=== PATIENT | female | born 1960 | race Caucasian/White ===

== ENCOUNTER 2016-07-07 15:21 | Inpatient (IN) | payer MEDICARE, MEDICAID ==
[~2016-07-07] VITALS: Ht 160 cm; Wt 147.9 kg
[~2016-07-07 15:21] MED LIST: INSUINJ37 SUBCUT
[2016-07-07 16:08] LABS: Basophils # (auto) 0.1 uL; Basophils % (auto) 0.9 % (0.0-2.0); DEFINITIVE VIEW TRANSMISSION; Eosinophils # (auto) 0.9 uL; Eosinophils % (auto) 7.7 % (0.0-7.0); Hemoglobin 11.9 g/dL (12.2-16.2); Lymphocytes % (auto) 26.5 % (10.0-50.0); Mean Corpuscular Hgb Conc. 32.1 g/dL (32.0-36.0); Mean Corpuscular Volume 90.3 fL (80.0-100.0); Mean Platelet Volume 8.7 fL (7.4-10.4); Monocytes # (auto) 0.4 uL; Monocytes % (auto) 3.1 % (0.0-12.0); Neutrophils % (auto) 61.8 % (37.0-80.0); Platelet Count (auto) 500 10^3/uL (140-450); Red Cell Distribution Width 14.1 % (11.6-16.0); White Blood Cell 11.3 10^3/uL (4.4-10.8)
[2016-07-07 16:26] LABS: INR 0.99 (0.9-1.15); Partial Thromboplastin Time 25.3 sec (22.64-33.71); Prothrombin Time 10.2 sec (9.37-12.3)
[2016-07-07 16:34] LABS: Albumin 3.2 g/dL (3.4-5.0); Anion Gap 12 (5-15); Blood Urea Nitrogen 30 mg/dL (7-18); Calcium 8.1 mg/dL (8.5-10.1); Carbon Dioxide 22 mmol/L (21-32); Chloride 105 mmol/L (98-107); Magnesium 1.8 mg/dL (1.6-2.6); Potassium 4.3 mmol/L (3.5-5.1); Sodium 139 mmol/L (136-145)
[2016-07-07 16:38] LABS: Alkaline Phosphatase 72 U/L (45-117); Aspartate Aminotransferase 20 U/L (15-37); BUN/Creatinine Ratio 30.9; Bilirubin, Total < 0.1 mg/dL (0.2-1.0); GFR African American 77 mL/min; GFR Non-African American 63 mL/min; Total Protein 7.3 g/dL (6.4-8.2)
[2016-07-07 17:04] LABS: Glucose 530 mg/dL (74-106)
[2016-07-07] MEDS ORDERED: LEVEMIR SC (17:28)
[2016-07-07] MEDS ORDERED: GABA-494 PO (17:28)
[2016-07-07] MEDS ORDERED: INSUINJ18 SC (17:28)
[2016-07-07] MEDS ORDERED: IBUP600T27 PO (17:28)
[2016-07-07] MEDS ORDERED: ONDANSETRON HCL 4 MG/2 ML VIAL IV ONE (17:45)
[2016-07-07] MEDS ORDERED: MORPHINE SULFATE 4 MG/ML SYRG IV ONE (17:45)
[2016-07-07] MEDS ORDERED: CLINDAMYCIN 600MG IV 50 ML IV ONE (17:45)
[2016-07-07] MEDS ORDERED: SODIUM CHLORIDE 0.9% 500 ML IV ONE (17:45)
[2016-07-07] MEDS ORDERED: NITROGLYCERIN 0.4 MG SL TAB SL PRN (18:00)
[2016-07-07] MEDS ORDERED: MORPHINE SULF INJ 2 MG/ML SYRINGE 1ML IV PRN ×2 (18:00)
[2016-07-07] MEDS ORDERED: DEXTROSE (50%) 50ML SYRG IV PRN (18:00)
[2016-07-07] MEDS ORDERED: TEMAZEPAM 15 MG CAP PO PRN (18:00)
[2016-07-07] MEDS ORDERED: LORazepam 0.5 MG TAB PO PRN (18:00)
[2016-07-07] MEDS ORDERED: ACETAMINOPHEN 500 MG TAB PO PRN (18:00)
[2016-07-07] MEDS ORDERED: PROMETHAZINE HCL 25 MG/ML 1ML IV PRN (18:00)
[2016-07-07] MEDS ORDERED: InsuLIN REG 1unit/0.01ml Soln (100units/ml) IV ONE (18:00)
[2016-07-07] MEDS ORDERED: VANCOMYCIN 1GM/250ML D5W 250 ML IV ONE (18:00)
[2016-07-07] MEDS ORDERED: ENOXAPARIN SOD 40 MG/0.4 ML SYRINGE SC SCH (18:05)
[2016-07-07] MEDS ORDERED: cefTRIAXone 1GM/50ML D5W 50 ML IV ONE (18:45)
[2016-07-07] MEDS: SODIUM CHLORIDE 0.9% 1,000 ML IV SCH (19:16)
[2016-07-07] MEDS: InsuLIN REG 1unit/0.01ml Soln (100units/ml) SC SCH (20:25)
[2016-07-07] MEDS: ACCU-CHEK COMFORT CURVE STRIP VI SCH (20:29)
[2016-07-07] MEDS: INSULIN DETEMIR(LEVEMIR) 1unit/0.01ml Soln (100units/ml) SC SCH (22:00)
[2016-07-07] MEDS: GABAPENTIN 100 MG CAP PO SCH (22:39)
[2016-07-08] MEDS: ACCU-CHEK COMFORT CURVE STRIP VI SCH ×5 (00:05→22:28)
[2016-07-08] MEDS: InsuLIN REG 1unit/0.01ml Soln (100units/ml) SC SCH ×5 (00:05→22:25)
[2016-07-08] MEDS: CLINDAMYCIN 600MG IV 50 ML IV SCH ×3 (02:00→18:20)
[2016-07-08] MEDS: SODIUM CHLORIDE 0.9% 1,000 ML IV SCH (04:28)
[2016-07-08 04:38] VITALS: BP 102/59
[2016-07-08 05:13] LABS: Basophils # (auto) 0.1 uL; Basophils % (auto) 0.8 % (0.0-2.0); DEFINITIVE VIEW TRANSMISSION; Eosinophils % (auto) 10.2 % (0.0-7.0); Hematocrit 33.2 % (36.0-46.0); Lymphocytes # (auto) 4.7 uL; Lymphocytes % (auto) 50.1 % (10.0-50.0); Mean Corpuscular Hgb Conc. 33.2 g/dL (32.0-36.0); Mean Corpuscular Volume 90.2 fL (80.0-100.0); Mean Platelet Volume 8.3 fL (7.4-10.4); Monocytes % (auto) 10.7 % (0.0-12.0); Neutrophils # (auto) 2.7 uL; Neutrophils % (auto) 28.2 % (37.0-80.0); Platelet Count (auto) 480 10^3/uL (140-450); Red Cell Distribution Width 13.9 % (11.6-16.0); White Blood Cell 9.5 10^3/uL (4.4-10.8)
[2016-07-08] MEDS: GABAPENTIN 100 MG CAP PO SCH ×3 (06:05→21:40)
[2016-07-08 09:00] VITALS: BP 119/67
[2016-07-08] MEDS ORDERED: IOHEXOL 350 MG/ML 100ML IJ ONE (09:26)
[2016-07-08] MEDS: INSULIN DETEMIR(LEVEMIR) 1unit/0.01ml Soln (100units/ml) SC SCH ×2 (10:00→22:28)
[2016-07-08] MEDS: cefTRIAXone 1GM/50ML D5W 50 ML IV SCH (10:17)
[2016-07-08] MEDS ORDERED: DEXTROSE (50%) 50ML SYRG IV PRN (12:15)
[2016-07-08 12:48] VITALS: BP 148/76
[2016-07-08 17:00] VITALS: BP 144/85
[2016-07-08 22:00] VITALS: BP 136/77
[2016-07-09] MEDS: CLINDAMYCIN 600MG IV 50 ML IV SCH ×3 (01:51→18:18)
[2016-07-09 05:24] VITALS: BP 124/72
[2016-07-09] MEDS: GABAPENTIN 100 MG CAP PO SCH ×3 (06:35→20:54)
[2016-07-09] MEDS: ACCU-CHEK COMFORT CURVE STRIP VI SCH ×4 (06:36→20:54)
[2016-07-09] MEDS: InsuLIN REG 1unit/0.01ml Soln (100units/ml) SC SCH ×4 (06:36→21:00)
[2016-07-09 09:08] VITALS: BP 114/64
[2016-07-09] MEDS: cefTRIAXone 1GM/50ML D5W 50 ML IV SCH (09:13)
[2016-07-09] MEDS: INSULIN DETEMIR(LEVEMIR) 1unit/0.01ml Soln (100units/ml) SC SCH ×2 (10:00→20:54)
[2016-07-09 11:32] LABS: INR 1.01 (0.9-1.15); Partial Thromboplastin Time 25.6 sec (22.64-33.71); Prothrombin Time 10.4 sec (9.37-12.3)
[2016-07-09 12:41] VITALS: BP 129/80
[2016-07-09 16:48] VITALS: BP 141/75
[2016-07-09 21:34] VITALS: BP 152/78
[2016-07-10] MEDS: CLINDAMYCIN 600MG IV 50 ML IV SCH ×3 (00:47→17:51)
[2016-07-10] MEDS: ACCU-CHEK COMFORT CURVE STRIP VI SCH ×4 (04:56→22:19)
[2016-07-10] MEDS: InsuLIN REG 1unit/0.01ml Soln (100units/ml) SC SCH ×4 (04:56→22:21)
[2016-07-10] MEDS: GABAPENTIN 100 MG CAP PO SCH ×3 (04:56→21:28)
[2016-07-10 05:39] VITALS: BP 109/58
[2016-07-10 06:50] LABS: Basophils # (auto) 0.1 uL; Basophils % (auto) 1.3 % (0.0-2.0); DEFINITIVE VIEW TRANSMISSION; Eosinophils # (auto) 0.9 uL; Eosinophils % (auto) 10.7 % (0.0-7.0); Hematocrit 36.8 % (36.0-46.0); Hemoglobin 11.9 g/dL (12.2-16.2); Lymphocytes # (auto) 3.6 uL; Lymphocytes % (auto) 43.9 % (10.0-50.0); Mean Corpuscular Hemoglobin 29.6 pg (28.0-32.0); Mean Corpuscular Hgb Conc. 32.3 g/dL (32.0-36.0); Mean Corpuscular Volume 91.7 fL (80.0-100.0); Mean Platelet Volume 8.9 fL (7.4-10.4); Monocytes # (auto) 0.8 uL; Monocytes % (auto) 9.9 % (0.0-12.0); Neutrophils # (auto) 2.8 uL; Neutrophils % (auto) 34.2 % (37.0-80.0); Platelet Count (auto) 480 10^3/uL (140-450); Red Cell Distribution Width 14.5 % (11.6-16.0); White Blood Cell 8.3 10^3/uL (4.4-10.8)
[2016-07-10 07:12] LABS: BUN/Creatinine Ratio 28.9; Calcium 8.9 mg/dL (8.5-10.1); Potassium 4.2 mmol/L (3.5-5.1)
[2016-07-10] MEDS: cefTRIAXone 1GM/50ML D5W 50 ML IV SCH (08:23)
[2016-07-10 08:33] VITALS: BP 115/56
[2016-07-10] MEDS: INSULIN DETEMIR(LEVEMIR) 1unit/0.01ml Soln (100units/ml) SC SCH ×2 (10:00→22:20)
[2016-07-10] MEDS ORDERED: IODIXANOL 320MG/ML 100ML BTL IV ONE (12:49)
[2016-07-10] MEDS ORDERED: LIDOCAINE 2%HCL (LOCAL ANESTH.) INJ 20ML MDV ONE (12:49)
[2016-07-10 13:00] VITALS: BP 100/64
[2016-07-10] MEDS ORDERED: MIDAZOLAM HCL 1MG/1ML-2 ML VIAL ONE (14:40)
[2016-07-10] MEDS ORDERED: ANGIOMAX 250 MG VIAL IV ONE (14:40)
[2016-07-10] MEDS ORDERED: SODIUM CHL 0.9% 0 ML ONE (14:40)
[2016-07-10] MEDS ORDERED: fentaNYL CITRATE 100 MCG/2 ML VL ONE (14:40)
[2016-07-10 17:37] VITALS: BP 134/73
[2016-07-10 22:00] VITALS: BP 131/71
[2016-07-10] MEDS: HYDROcodone-ACET 5/325MG TAB PO PRN (22:19)
[2016-07-11] MEDS: CLINDAMYCIN 600MG IV 50 ML IV SCH (01:20)
[2016-07-11 05:00] VITALS: BP 113/63
[2016-07-11] MEDS: InsuLIN REG 1unit/0.01ml Soln (100units/ml) SC SCH ×4 (06:00→22:44)
[2016-07-11] MEDS: ACCU-CHEK COMFORT CURVE STRIP VI SCH ×4 (06:00→22:49)
[2016-07-11] MEDS: GABAPENTIN 100 MG CAP PO SCH ×3 (06:00→22:13)
[2016-07-11 08:58] VITALS: BP 128/66
[2016-07-11] MEDS: cefTRIAXone 1GM/50ML D5W 50 ML IV SCH (09:00)
[2016-07-11] MEDS ORDERED: fentaNYL CITRATE 100 MCG/2 ML VL ONE (09:38)
[2016-07-11] MEDS ORDERED: KETOROLAC TROMETH 60MG/2ML VIAL IM ONE (09:39)
[2016-07-11] MEDS ORDERED: MIDAZOLAM HCL 1MG/1ML-2 ML VIAL ONE (09:39)
[2016-07-11] MEDS ORDERED: DEXAMETHASONE SOD PHOS 10MG/1ML VIAL INJ ONE (09:39)
[2016-07-11] MEDS ORDERED: LIDOCAINE HCL 2 %PF INJ 10ML AMP IJ ONE (09:39)
[2016-07-11] MEDS ORDERED: ONDANSETRON HCL 4 MG/2 ML VIAL ONE (09:39)
[2016-07-11] MEDS ORDERED: PROPOFOL 10 MG/ML 20 ML IV ONE (09:39)
[2016-07-11] MEDS: INSULIN DETEMIR(LEVEMIR) 1unit/0.01ml Soln (100units/ml) SC SCH ×2 (10:00→22:45)
[2016-07-11] MEDS ORDERED: ONDANSETRON HCL 4 MG/2 ML VIAL IV ONE (10:00)
[2016-07-11] MEDS ORDERED: HYDROmorphone HCL 2 MG/ML VL IV PRN (10:00)
[2016-07-11] MEDS ORDERED: DOXYCYCLINE 100 MG TAB/CAP PO ONE (11:15)
[2016-07-11 13:00] VITALS: BP 136/75
[2016-07-11] MEDS: metroNIDAZOLE 500 MG TAB PO SCH ×2 (14:42→22:13)
[2016-07-11 17:17] VITALS: BP 149/74
[2016-07-11 20:00] VITALS: BP 134/79
[2016-07-11] MEDS: DOXYCYCLINE 100 MG TAB/CAP PO SCH (22:13)
[2016-07-11] MEDS: FLORASTOR (S. BOULARDII) 250 MG CAP PO SCH (22:13)
[2016-07-12 05:37] VITALS: BP 125/69
[2016-07-12] MEDS: GABAPENTIN 100 MG CAP PO SCH ×2 (05:40→14:00)
[2016-07-12] MEDS: metroNIDAZOLE 500 MG TAB PO SCH ×2 (05:40→14:00)
[2016-07-12] MEDS: ACCU-CHEK COMFORT CURVE STRIP VI SCH ×2 (05:57→11:39)
[2016-07-12] MEDS: InsuLIN REG 1unit/0.01ml Soln (100units/ml) SC SCH ×2 (05:57→11:39)
[2016-07-12 07:00] VITALS: BP 126/69
[2016-07-12] MEDS: INSULIN DETEMIR(LEVEMIR) 1unit/0.01ml Soln (100units/ml) SC SCH (08:44)
[2016-07-12] MEDS: FLORASTOR (S. BOULARDII) 250 MG CAP PO SCH (08:48)
[2016-07-12] MEDS: DOXYCYCLINE 100 MG TAB/CAP PO SCH (08:48)
[2016-07-12] MEDS: HYDROcodone-ACET 5/325MG TAB PO PRN (11:41)
[2016-07-12 12:00] VITALS: BP 142/82
[2016-07-12 12:13] VITALS: BP 126/69
== END 2016-07-12 15:09 | disposition home or self-care (01) | DRG 264 ==
LOC: ER 15:24 → TELE 15:25 → TELE-EAST 20:45 → EAST 07-08 07:41
PROVIDERS: ADMIT Internal Medicine; ATTEND Internal Medicine
PROC: B41J1ZZ Fluoroscopy of Other Lower Arteries using Low Osmolar Contrast (ICD-10-PCS; 2016-07-10)
PROC: 0JBQ0ZZ Excision of Right Foot Subcutaneous Tissue and Fascia, Open Approach (ICD-10-PCS; 2016-07-11)
PROC: 0HRMXK3 Replacement of Right Foot Skin with Nonautologous Tissue Substitute, Full Thickness, External Approach (ICD-10-PCS; principal; 2016-07-11 09:32)
DX: E10.51 Type 1 diabetes mellitus with diabetic peripheral angiopathy without gangrene (principal); M86.9 Osteomyelitis, unspecified; E10.42 Type 1 diabetes mellitus with diabetic polyneuropathy; E10.621 Type 1 diabetes mellitus with foot ulcer; L03.031 Cellulitis of right toe; E10.65 Type 1 diabetes mellitus with hyperglycemia; L97.519 Non-pressure chronic ulcer of other part of right foot with unspecified severity; I10 Essential (primary) hypertension; Z80.0 Family history of malignant neoplasm of digestive organs; Z82.3 Family history of stroke; Z82.49 Family history of ischemic heart disease and other diseases of the circulatory system; Z83.3 Family history of diabetes mellitus; Z79.4 Long term (current) use of insulin; Z87.891 Personal history of nicotine dependence; Z79.82 Long term (current) use of aspirin; Z88.0 Allergy status to penicillin; Z91.040 Latex allergy status; Z98.890 Other specified postprocedural states
CPT/HCPCS: 36415; 71010; 73630; 73718; 75635; 80048; 80053; 82962; 83036; 83735; 84484; 84702; 85025; 85049; 85610; 85652; 85730; 87493; 93926; 96372; 96374; 96375; 99152; C1769; J0696; J1100; J1815; J1885; J2250; J2405; J2704; J3490; Q9967

== ENCOUNTER → 2016-08-27 | Day surgery (SDC) | payer MEDICARE, MEDICAID ==
[~2016-08-27] VITALS: Ht 160 cm; Wt 78.0 kg
[~2016-08-27] MED LIST changes: +ACCU-CHEK COMFORT CURVE STRIP VI ONE; +ANGIOMAX 250 MG VIAL IV ONE; +CLOPIDOGREL 300 MG TAB ONE; +DEXTROSE (50%) 50ML SYRG IV ONE; +DEXTROSE 50% SYRINGE 50 ML IV ONE; +EPTIFIBATIDE INJ (2MG/ML) 10ML VIAL IV ONE; +ERYTHROMYCIN 250 MG TAB PO ONE; +GABA-494 PO; +IBUP600T27 PO; +INSUINJ18 SC; -INSUINJ37 SUBCUT; +IODIXANOL 320MG/ML 100ML BTL IV ONE; +LEVEMIR SC; +LIDOCAINE 2%HCL (LOCAL ANESTH.) INJ 20ML MDV ONE; +MIDAZOLAM HCL 1MG/1ML-2 ML VIAL ONE; +NITROGLYCERIN 5MG/ML 10ML VIAL IV ONE; +SODIUM CHL 0.9% 50 ML ONE; +VERAPAMIL 2.5MG/ML INJ 2ML VIAL IV ONE; +fentaNYL CITRATE 100 MCG/2 ML VL ONE
[2016-08-27] MEDS: ACCU-CHEK COMFORT CURVE STRIP VI SCH ×2 (13:00→14:00)
== END | disposition home or self-care (01) ==
LOC: CATH 06:59
PROVIDERS: ATTEND Internal Medicine
DX: I73.9 Peripheral vascular disease, unspecified (principal); E11.9 Type 2 diabetes mellitus without complications; B19.10 Unspecified viral hepatitis B without hepatic coma
CPT/HCPCS: 37225; C1769; C1894; J0583; J1644; J2250; J3010; J3490; J7030; J7042; Q9967